=== PATIENT | female | born 1985 | race Caucasian/White ===

== ENCOUNTER 2023-10-09 06:57 | Emergency (ER) | payer OTHER, SELFPAY ==
[2023-10-09 07:00] VITALS: BP 148/100; PULSE 100; RESP 19; TEMP 36.6; O2SAT 97; BMI 39.0
[2023-10-09 07:53] LABS: Influenza A PCR NEGATIVE (Negative); Influenza B PCR NEGATIVE (Negative); Resp Syncy Virus RNA Qual PCR NEGATIVE (Negative); SARS COV2 PCR INHOUSE NEGATIVE (Negative)
[2023-10-09 11:39] VITALS: BP 172/106; PULSE 91; RESP 16; TEMP 36.6; O2SAT 98
--- NOTE | 2023-10-09 11:39 | ED.HA ---
HPI - Headache General Chief Complaint: Headache Stated Complaint: Headache/Stiff kneck Time Seen by Provider: 10/09/23 12:06 Source: patient Mode of arrival: ambulatory History of Present Illness HPI Narrative: 37-year-old female with previous history of migraines comes in with what she describes as viral symptoms proximally 1 week ago with a sore throat and then states that she began developing a headache since Monday that is very similar to her prior migraines, she has not currently on medication any longer, she has some associated photosensitivity as well as sound sensitivity that she attributes to previous migraine history. She does report associated nasal congestion and states that she just overall did not feel well today, states that the neck pain is more from not wanting to move her head due to the headache. She denies any visual disturbances. Related Data Allergies Allergy/AdvReac Type Severity Reaction Status Date / Time pineapple [PINEAPPLE] Allergy Unknown DIFF Verified 10/09/23 07:02 BREATHING, HIVES bupropion [From Wellbutrin] Allergy Unknown Verified 10/09/23 07:02 ibuprofen [From Motrin] Allergy Unknown Verified 10/09/23 07:02 Review of Systems Review of Systems: Pertinent positives and negatives as stated in HPI [facility] Past Medical History Source: nursing notes reviewed Social History Social History Alcohol intake: never Smoked in Last 30 Days: No Use of substances other than those prescribed or required for medical reasons: No Advance Directives: No Advance Directives Information Provided: No Physical Exam Vital Signs: Vital Signs: Last Vital Signs Temp 98 F 10/09/23 11:39 Pulse 91 10/09/23 11:39 Resp 16 10/09/23 11:39 BP 172/106 H 10/09/23 11:39 Pulse Ox 98 10/09/23 11:39 O2 Del Method Room Air 10/09/23 11:39 BMI result Body Mass Index 39.0 VITAL SIGNS: Reviewed. GENERAL: Elevated BMI, Well developed, well nourished, in no acute distress. HEAD: Normocephalic/atraumatic EYES: PERRLA, EOMI EARS: Ext canals without abnormality, TMs non-bulging and non-erythematous NOSE: Nares patent bilateral OROPHARYNX: no oral lesions noted, posterior pharynx clear and non-erythematous without noted tonsillar enlargement/erythema/exudates NECK: Supple, no adenopathy LUNGS: Normal breath sounds. No adventitious sounds or accessory muscle use. SpO2<98> CARDIOVASCULAR: Regular rate and rhythm without noted murmurs ABDOMEN: Soft, non-tender, non-distended with bowel sounds. MUSCULOSKELETAL: No tenderness, deformities, or effusions noted on gross inspection. EXTREMITIES: No cyanosis, clubbing or edema. SKIN: Inspection of the skin reveals no rashes NEUROLOGIC: Alert and oriented x 4. Strength and sensation to light touch were grossly intact x 4. Course Course Course Narrative: This is a Rapid Medical Examination (RME) performed by Jemal Ochoa PA-C in triage. Full HPI, ROS, assessment and treatment plan per primary provider in the Main ED. 37 y/o female with history of migraines (last 5 years ago) presents to the ER for evaluation of a 8/10 headache for the last 4 days. headache top of her head and to the left side of the head. no improvement w/ tylenol at home. no other symptoms aside from nausea. Patient tearful in triage. Left ear is normal, normal TM, BP 172/106, no history of HTN at home. Plan: check labs, mediate and reassess per provider in the Main ER Medications Administered Discontinued Medications Generic Name Dose Route Start Last Admin Trade Name Carlos A PRN Reason Stop Dose Admin Acetaminophen 975 mg 10/09/23 12:38 10/09/23 12:44 Acetaminophen 325 Mg Tablet PO 10/09/23 12:39 975 mg ONCE ONE Administration Acetaminophen/Butalbital/Caffeine 1 tab 10/09/23 13:51 10/09/23 14:24 Butalb/Acetamin/Caff 50/325/40 Tablet PO 10/09/23 13:52 1 tab ONCE ONE Administration Ibuprofen 400 mg 10/09/23 13:51 10/09/23 14:24 Ibuprofen 400 Mg Tablet PO 10/09/23 13:52 400 mg ONCE ONE Administration Medical Decision Making Medical Decision Making [facility] Narrative: 37-year-old female with history and clinical presentation, DDX: Viral illness, strep pharyngitis, migraine/complex headache, no clinical suspicion for meningitis I reviewed all investigations and hematologic indices are negative for leukocytosis/anemia/thrombocytopenia. Chemistry indices are grossly within normal limits without evidence of PATTI/electrolyte or liver enzyme derangements. Urinalysis is a dirty sample and do not suspect urinary tract infection. Viral testing is negative for influenza/RSV/COVID-19 as well as rapid strep testing being negative. Patient received Tylenol with significant improvement in symptoms, states that she does occasionally take ibuprofen without any issue so she received 400 mg of ibuprofen, continues to state that her symptoms are improving and my interpretation is that patient is likely experiencing recurrence of her migraines with a similar onset and pattern. She was instructed follow-up with your primary care doctor for further outpatient management. Differential Diagnosis Differential Diagnoses: The differential diagnosis associated with the presentation includes Please see the discussion above Admission/Observation Consideration of admission/observation: Escalation of care including admission/observation considered Please see the discussion above Lab Data MDM Lab Attestation statement: I reviewed the patient's lab results. Please see the discussion above 10/09/23 12:08 10/09/23 12:08 Labs: Lab Results 10/09/23 10/09/23 10/09/23 Range/Units 07:07 12:08 12:58 WBC 6.9 (4.8-10.8) X10*3/uL RBC 4.92 (4.20-5.50) X10*6/uL Hgb 14.9 (12.0-16.0) g/dl Hct 42.0 (37.0-47.0) % MCV 85.4 (80.0-98.0) fL MCH 30.3 (27.0-33.0) pg MCHC 35.5 H (31.0-35.0) g/dl RDW 12.1 (11.0-16.0) % Plt Count 359 (160-400) X10*3/uL MPV 8.2 L (9.4-12.3) fL Immature Gran % (Auto) 0.4 (0.0-0.4) % Neut % (Auto) 59.5 (45-73) % Lymph % (Auto) 31.5 (20-40) % [place] % (Auto) 6.2 (2-11) % Eos % (Auto) 2.0 (0-4) % Baso % (Auto) 0.4 (0-2) % Lymph # (Auto) 2.2 (1.2-4.9) X10*3/uL [place] # (Auto) 0.4 (0.1-1.2) X10*3/uL Eos # (Auto) 0.1 (0.0-0.4) X10*3/uL Baso # (Auto) 0.0 (0.0-0.2) X10*3/uL Abs Immat Gran (auto) 0.03 (0.00-0.03) X10*3/uL Absolute Neuts (auto) 4.1 (2.0-8.3) x10*3/uL Absolute Nucleated RBC 0.000 (0.0-0.012) X10*3/uL Nucleated RBC % (auto) 0.0 (0.0-0.2) /100WBC Sodium 141 (135-145) mmol/L Potassium 3.8 (3.3-5.1) mmol/L Chloride 107 (96-108) mmol/L Carbon Dioxide 25 (22-29) mmol/L Anion Gap 13 (12-20) BUN 9 (9-16) mg/dL Creatinine 0.72 (0.5-1.4) mg/dL Estim Creat Clear Calc 121.8 Estimated GFR > 60 Random Glucose 83 (60-115) mg/dL Calcium 9.7 (8.4-10.2) mg/dL Magnesium 2.0 (1.6-2.6) mg/dL Total Bilirubin 0.5 (0.0-1.0) mg/dL Direct Bilirubin 0.2 (0.0-0.5) mg/dL AST 15 (5-31) U/L ALT 19 (0-31) U/L Alkaline Phosphatase 104 (39-117) U/L Total Protein 7.6 (6.5-8.0) g/dL Albumin 4.3 (3.5-5.0) g/dL Urine Color Yellow Urine Appearance Cloudy Urine pH 5.5 (5.0-9.0) Ur Specific [place] 1.025 (1.005-1.025) Urine Protein Negative (Neg-Trace) mg/dL Urine Glucose (UA) Negative (Negative) mg/dL Urine Ketones Negative (Negative) mg/dL Urine Blood Large (3+) H (Negative) Urine Nitrite Negative (Negative) Ur Leukocyte Esterase Trace H (Negative) Urine RBC 11-20 H (0-2) /HPF Urine WBC 6-10 H (0-5) /HPF Ur Squamous Epith Cells 11-20 (0-2) /HPF Urine Bacteria 2+ (None Seen) Hyaline Casts 0-2 (0-2) /LPF Influenza Type A (PCR) NEGATIVE (Negative) Influenza Type B (PCR) NEGATIVE (Negative) RSV RNA Qual (PCR) NEGATIVE (Negative) SARS-CoV-2 RNA (RT-PCR) NEGATIVE (Negative) S. pyogenes GrpA LEONARDO Negative (Negative) Critical Care Time Critical Care Time Critical Care Time: Yes Total Critical Care Time: 30 Attestation: I personally attest to this time spent taking care of the patient. Discharge Plan Discharge Clinical Impression: Migraine Patient Disposition: Home, Self-Care Instructions: Migraine Headache (ED) Additional Instructions: Continue to take plenty of fluids and treat headache with 1000 mg of Tylenol every 6 hours as needed for pain control. Follow-up with your primary care doctor to discuss abortive medication for your migraines. Print Language: Lithuanian
[2023-10-09 12:19] LABS: MANUAL DIFF FLAG NO
[2023-10-09 12:21] LABS: Basophils Percent Auto 0.4 % (0-2); Eosinophils Absolute Auto 0.1 X10*3/uL (0.0-0.4); Hemoglobin 14.9 g/dl (12.0-16.0); Imm Gran Abs Auto 0.03 X10*3/uL (0.00-0.03); Imm Gran Pct Auto 0.4 % (0.0-0.4); Lymphocytes Absolute Auto 2.2 X10*3/uL (1.2-4.9); Lymphocytes Percent Auto 31.5 % (20-40); Mean Corpuscular HGB Conc 35.5 g/dl (31.0-35.0); Mean Corpuscular Hemoglobin 30.3 pg (27.0-33.0); Mean Corpuscular Volume 85.4 fL (80.0-98.0); Mean Platelet Volume 8.2 fL (9.4-12.3); Monocytes Absolute Auto 0.4 X10*3/uL (0.1-1.2); Monocytes Percent Auto 6.2 % (2-11); Neutrophils Absolute Auto 4.1 x10*3/uL (2.0-8.3); Neutrophils Percent Auto 59.5 % (45-73); Platelet Count 359 X10*3/uL (160-400); Red Blood Count 4.92 X10*6/uL (4.20-5.50); Red Cell Distribution Width 12.1 % (11.0-16.0); White Blood Count 6.9 X10*3/uL (4.8-10.8)
[2023-10-09 12:36] LABS: Alanine Aminotransferase 19 U/L (0-31); Albumin Level 4.3 g/dL (3.5-5.0); Alkaline Phosphatase 104 U/L (39-117); Anion Gap 13 (12-20); Aspartate Amino Transferase 15 U/L (5-31); Bilirubin Direct 0.2 mg/dL (0.0-0.5); Bilirubin Total 0.5 mg/dL (0.0-1.0); Blood Urea Nitrogen 9 mg/dL (9-16); Calcium 9.7 mg/dL (8.4-10.2); Carbon Dioxide 25 mmol/L (22-29); Chloride 107 mmol/L (96-108); Creatinine Clr Calc Pharmacy 121.8; Estimated Glomerular Filt Rate > 60; Glucose Random 83 mg/dL (60-115); Potassium 3.8 mmol/L (3.3-5.1); Sodium 141 mmol/L (135-145); Total Protein 7.6 g/dL (6.5-8.0)
[2023-10-09] MEDS: Acetaminophen 325 MG TABLET 975 MG PO (12:44)
[2023-10-09 13:06] LABS: Appearance Urine Cloudy; Color Urine Yellow; Glucose Urine UA Negative (Negative); Leukocyte Esterase Urine Trace (Negative); Nitrite Urine Negative (Negative); PH 5.5 (5.0-9.0); Specific Gravity - Urine 1.025 (1.005-1.025); UMIC TRIGGER UACC YES; Urine Blood Large (3+) (Negative); Urine Ketones Negative (Negative); Urine Protein Negative (Neg-Trace)
[2023-10-09 13:08] LABS: Bacteria Urine 2+ (None Seen); Hyaline Casts Urine 0-2 /LPF (0-2); UACC Culture Trigger YES
[2023-10-09 13:21] LABS: IDNOW Serial# 08D9AD1C; Strep A Nucleic Acid Negative (Negative)
[2023-10-09] MEDS: Ibuprofen 400 MG TABLET PO (14:24)
[2023-10-09] MEDS: Butalb/Acetamin/Caff 50/325/40 TABLET 1 TAB PO (14:24)
[2023-10-09 14:58] VITALS: BP 172/106; PULSE 92; RESP 18; TEMP 36.7; O2SAT 98
== END 2023-10-09 15:01 | disposition home or self-care (01) ==
PROVIDERS: Physician Assistant; Emergency Provider Student in an Organized Health Care Education/Training Program
DX: G43.909 Migraine, unspecified, not intractable, without status migrainosus (principal); M54.2 Cervicalgia; R53.83 Other fatigue; Z03.818 Encounter for observation for suspected exposure to other biological agents ruled out; Z79.899 Other long term (current) drug therapy
CPT/HCPCS: 0241U; 36415; 80048; 80076; 81001; 83735; 85025; 87086; 87651; 99283; 99284